=== PATIENT | female | born 1945 | race Caucasian/White ===

== ENCOUNTER 2018-12-27 12:19 | Outpatient (CLI) | payer MEDICARE | END 2018-12-27 23:59 | disposition home or self-care (01) | LOC: RAD 12:19 | PROVIDERS: ATTEND Family Medicine | DX: M47.817 Spondylosis without myelopathy or radiculopathy, lumbosacral region (principal); M48.07 Spinal stenosis, lumbosacral region | CPT/HCPCS: 72148 ==

== ENCOUNTER 2018-12-30 11:01 | Inpatient (IN) | payer MEDICARE, MEDICAID ==
[~2018-12-30] VITALS: Ht 162.6 cm; Wt 106.5 kg
--- NOTE | 2018-12-30 11:01 | NUR ---
ACCESS SERVICES ASSISTANT: PT SENT FROM [facility] FOR EVALUATION OF ABD EDEMA & 25 LB WEIGHT GAIN IN 3 WEEKS, NO SWELLING IN LOWER EXTREMITIES. PT HAS BEEN ON ORAL DIURETIC X 3 WEEKS WITHOUT IMPROVEMENT.
[2018-12-30] MEDS ORDERED: CHOL200040 PO (11:43)
[2018-12-30] MEDS ORDERED: GABA800T5 PO (11:43)
[2018-12-30] MEDS ORDERED: ACET325T26 PO (11:43)
[2018-12-30] MEDS ORDERED: APIX5TAB PO (11:43)
[2018-12-30] MEDS ORDERED: TRAZ50TA66 PO (11:43)
[2018-12-30] MEDS ORDERED: MELA3TAB62 PO (11:43)
[2018-12-30] MEDS ORDERED: CALC-680 PO (11:43)
[2018-12-30] MEDS ORDERED: HYDR-3245 PO (11:43)
[2018-12-30] MEDS ORDERED: CARV3.1212 PO (11:43)
--- NOTE | 2018-12-30 11:51 | NUR ---
CONTACT WITH PT, PTS DAUGHTER AT BEDSIDE. UPDATED ON POC. NO NEEDS EXPRESSED AT THIS TIME.
[2018-12-30 12:05] LABS: BASOPHILS # (AUTO) 0.03 x10^3/uL (0-0.1); BASOPHILS % (AUTO) 1 % (0-1); EOSINOPHILS # (AUTO) 0.11 x10^3/uL (0-0.4); EOSINOPHILS % (AUTO) 2 % (1-7); LYMPHOCYTES # (AUTO) 1.77 x10^3/uL (1-3.4); LYMPHOCYTES % (AUTO) 28 % (22-44); MD NO; MEAN CORPUSCULAR HEMOGLOBIN 32.4 pg (27.0-34.8); MEAN CORPUSCULAR VOLUME 101.3 fL (80-100); MEAN PLATELET VOLUME 7.9 fL (7.4-10.4); MONOCYTES # (AUTO) 0.67 x10^3/uL (0.2-0.8); MONOCYTES % (AUTO) 11 % (2-9); NEUTROPHILS # (AUTO) 3.75 x10^3/uL (1.8-6.8); NEUTROPHILS % (AUTO) 59 % (42-75); PLATELET COUNT 242 x10^3/uL (130-400); RED BLOOD COUNT 4.02 x10^6/uL (3.82-5.3); RED CELL DISTRIBUTION WIDTH 15.8 % (9.6-15.2)
[2018-12-30 12:11] LABS: PROTHROMBIN TIME 10.5 Seconds (9.6-11.5)
[2018-12-30 12:14] LABS: ALANINE AMINOTRANSFERASE 18 U/L (12-78); ALBUMIN 2.8 g/dL (3.4-5.0); ANION GAP 5 mmol/L (5-15); CALCIUM 9.3 mg/dL (8.5-10.1); CHLORIDE 104 mmol/L (98-107); CREATININE 1.01 mg/dL (0.55-1.02)
[2018-12-30 12:18] LABS: ALKALINE PHOSPHATASE 75 U/L (45-117); BILIRUBIN,TOTAL 0.2 mg/dL (0.2-1.0); TROPONIN I < 0.015 ng/mL (0.000-0.045)
--- NOTE | 2018-12-30 12:46 | NUR ---
PT ATTEMPTED TO USE BEDPAIN, UNSUCCESSFUL. PT REPOSITIONED FOR COMFORT. AFIB PER MONITOR, AUTO BP AND PULSE OX INPLACE. UPDATED ON POC. NO OTHER NEEDS EXPRESSED AT THIS TIME.
--- NOTE | 2018-12-30 13:42 | NUR ---
Task RN: Pt refusing cath UA. States unable to urinate at this time. VSS. Pt repositioned in bed.
[2018-12-30] MEDS ORDERED: HYDROcodone/APAP 10/325 MG TABLET PO ONE (14:00)
[2018-12-30] MEDS ORDERED: HYDROcodone/APAP 10/325 MG TABLET ONE (14:01)
--- NOTE | 2018-12-30 14:19 | NUR ---
PUREWICK PLACE BETWEEN PTS LEGS AFTER CLEANING WITH THERAWORX CLEANSING CLOTHS AND AFTER EXPLAINING PROCEDURE TO PT. PT YARITZA WELL. PT AND PTS DAUGHTER AWARE OF PT TO BE ADMITTED INPATIENT STATUS. NO OTHER NEEDS EXPRESSED AT THIS TIME.
[2018-12-30 14:46] LABS: MICROSCOPIC NOT IND
[2018-12-30 14:49] LABS: CULTURE INDICATED? NO
[2018-12-30] MEDS ORDERED: FUROSEMIDE 20 MG/2 ML ONE (15:14)
[2018-12-30] MEDS ORDERED: FUROSEMIDE 40 MG/4 ML IV ONE (15:30)
--- NOTE | 2018-12-30 16:07 | NUR ---
NO SIG CHANGE IN PT CONDITION NOTED. NO OUTPUT AFTER LASIX ADMINISTRATION. PT AND PTS FAMILY AWARE OF WAITING FOR ROOM ASSIGNMENT. NO NEEDS EXPRESSED AT THIS TIME.
--- NOTE | 2018-12-30 16:55 | NUR ---
REPORT CALLED TO [facility]INTON PEREA. POC DISCUSSED. PT WITH 600MLS UOP AFTER LASIX. PT AND FAMILY UPDATED ON ROOM ASSIGNMENT. NO NEEDS EXPRESSED AT THIS TIME.
[2018-12-30 18:52] VITALS: BP 127/80
[2018-12-30] MEDS ORDERED: hydrALAzine 20 MG/ML, 1ML IVPush PRN (20:00)
[2018-12-30] MEDS ORDERED: MELATONIN 3 MG TABLET PO PRN (20:00)
[2018-12-30] MEDS ORDERED: ENOXAPARIN 40 MG/0.4 ML SQ SCH (20:00)
[2018-12-30] MEDS ORDERED: METHOCARBAMOL 500 MG TABLET PO PRN (20:00)
[2018-12-30] MEDS ORDERED: POLYETHYLENE GLYCOL 17 GM PACKET PO PRN (20:00)
[2018-12-30] MEDS ORDERED: ACETAMINOPHEN 325 MG TABLET PO PRN ×2 (20:00)
[2018-12-30] MEDS ORDERED: BISACODYL 10 MG SUPP PR PRN (20:00)
[2018-12-30] MEDS ORDERED: morphine SULFATE 10 MG/ML, 1ML IVPush PRN (20:00)
[2018-12-30] MEDS ORDERED: ONDANSETRON 2MG/ML, 2ML IVPush PRN (20:00)
[2018-12-30] MEDS ORDERED: ONDANSETRON ODT 4 MG PO PRN (20:00)
[2018-12-30] MEDS ORDERED: PROMETHAZINE 25 MG/ML, 1ML IM PRN (20:00)
[2018-12-30] MEDS ORDERED: LABETALOL 5MG/ML, 20ML IVPush PRN (20:00)
[2018-12-30 20:02] LABS: FREE T4 (FREE THYROXINE) 1.01 ng/dL (0.76-1.46); HEMOGLOBIN A1C 5.6 % (4.2-6.3); THYROID STIMULATING HORMONE 1.32 mIU/L (0.358-3.740)
[2018-12-30] MEDS: CARVEDILOL 3.125 MG TABLET PO SCH (20:08)
[2018-12-30] MEDS: TRAZODONE 50MG TABLET PO SCH (20:08)
[2018-12-30] MEDS: HYDROcodone/APAP 10/325 MG TABLET PO SCH (20:08)
[2018-12-30] MEDS: APIXABAN 5 MG TABLET PO SCH (20:08)
[2018-12-30] MEDS: GABAPENTIN 400 MG CAPSULE PO SCH (20:08)
[2018-12-30] MEDS ORDERED: GABAPENTIN 100 MG CAPSULE PO SCH (21:00)
[2018-12-31] MEDS: HYDROcodone/APAP 10/325 MG TABLET PO SCH ×6 (00:51→22:03)
[2018-12-31 01:08] VITALS: BP 120/70
[2018-12-31] MEDS: GABAPENTIN 400 MG CAPSULE PO SCH ×4 (04:57→22:03)
[2018-12-31 05:04] LABS: BASOPHILS # (AUTO) 0.05 x10^3/uL (0-0.1); BASOPHILS % (AUTO) 1 % (0-1); EOSINOPHILS # (AUTO) 0.15 x10^3/uL (0-0.4); EOSINOPHILS % (AUTO) 2 % (1-7); LYMPHOCYTES # (AUTO) 2.08 x10^3/uL (1-3.4); LYMPHOCYTES % (AUTO) 34 % (22-44); MD NO; MEAN CORPUSCULAR HGB CONC 32.3 g/dL (32.4-35.8); MEAN CORPUSCULAR VOLUME 101.9 fL (80-100); MEAN PLATELET VOLUME 7.8 fL (7.4-10.4); MONOCYTES # (AUTO) 0.62 x10^3/uL (0.2-0.8); MONOCYTES % (AUTO) 10 % (2-9); NEUTROPHILS # (AUTO) 3.24 x10^3/uL (1.8-6.8); NEUTROPHILS % (AUTO) 53 % (42-75); PLATELET COUNT 232 x10^3/uL (130-400); RED BLOOD COUNT 3.89 x10^6/uL (3.82-5.3); RED CELL DISTRIBUTION WIDTH 15.6 % (9.6-15.2)
[2018-12-31 05:17] LABS: ALBUMIN 2.7 g/dL (3.4-5.0); ANION GAP 3 mmol/L (5-15); CALCIUM 9.2 mg/dL (8.5-10.1); CHLORIDE 105 mmol/L (98-107)
[2018-12-31 05:22] LABS: ALANINE AMINOTRANSFERASE 17 U/L (12-78); ALKALINE PHOSPHATASE 72 U/L (45-117); BILIRUBIN,TOTAL 0.4 mg/dL (0.2-1.0); CHOL/HDL RATIO 3.2; CHOLESTEROL, TOTAL 155 mg/dL (140-239); CREATININE 0.97 mg/dL (0.55-1.02); HDL CHOL % 32 % (28-40); HDL CHOLESTEROL (DIRECT) 49 mg/dL (40-60); LDL CHOLESTEROL,CALCULATED 83 mg/dL (54-169); LDL/HDL RATIO 1.7 (0.5-3.0); TOTAL PROTEIN 5.7 g/dL (6.4-8.2); TRIGLYCERIDES 117 mg/dL (50-200); VLDL CHOLESTEROL 23 mg/dL (0-25)
[2018-12-31 07:01] VITALS: BP 143/90
[2018-12-31] MEDS ORDERED: FUROSEMIDE 20 MG/2 ML IV ONE (08:00)
[2018-12-31] MEDS ORDERED: FUROSEMIDE 20 MG/2 ML IV SCH (09:00)
[2018-12-31] MEDS: CHOLECALCIFEROL 1,000 UNIT TABLET PO SCH (09:03)
[2018-12-31] MEDS: CARVEDILOL 3.125 MG TABLET PO SCH ×2 (09:04→22:03)
[2018-12-31] MEDS: APIXABAN 5 MG TABLET PO SCH ×2 (09:04→22:03)
[2018-12-31] MEDS: SENNA/DOCUSATE TABLET PO SCH (09:05)
[2018-12-31] MEDS: CALCIUM CITRATE 950 MG TABLET PO SCH (09:05)
[2018-12-31 14:42] VITALS: BP 125/83
[2018-12-31 18:57] VITALS: BP 117/78
[2018-12-31] MEDS: TRAZODONE 50MG TABLET PO SCH (22:03)
[2019-01-01] MEDS: HYDROcodone/APAP 10/325 MG TABLET PO SCH ×6 (01:00→20:51)
[2019-01-01 01:25] VITALS: BP 131/85
[2019-01-01 05:06] LABS: BASOPHILS # (AUTO) 0.07 x10^3/uL (0-0.1); BASOPHILS % (AUTO) 1 % (0-1); EOSINOPHILS # (AUTO) 0.14 x10^3/uL (0-0.4); EOSINOPHILS % (AUTO) 2 % (1-7); LYMPHOCYTES # (AUTO) 3.04 x10^3/uL (1-3.4); LYMPHOCYTES % (AUTO) 39 % (22-44); MD NO; MEAN CORPUSCULAR HEMOGLOBIN 33.2 pg (27.0-34.8); MEAN CORPUSCULAR HGB CONC 32.6 g/dL (32.4-35.8); MEAN CORPUSCULAR VOLUME 101.7 fL (80-100); MEAN PLATELET VOLUME 7.9 fL (7.4-10.4); MONOCYTES # (AUTO) 0.72 x10^3/uL (0.2-0.8); MONOCYTES % (AUTO) 9 % (2-9); NEUTROPHILS # (AUTO) 3.76 x10^3/uL (1.8-6.8); NEUTROPHILS % (AUTO) 49 % (42-75); PLATELET COUNT 216 x10^3/uL (130-400); RED BLOOD COUNT 3.79 x10^6/uL (3.82-5.3); RED CELL DISTRIBUTION WIDTH 15.5 % (9.6-15.2)
[2019-01-01 05:20] LABS: CHLORIDE 105 mmol/L (98-107)
[2019-01-01 05:43] LABS: ALANINE AMINOTRANSFERASE 12 U/L (12-78); ALBUMIN 2.5 g/dL (3.4-5.0); ALKALINE PHOSPHATASE 58 U/L (45-117); ANION GAP 5 mmol/L (5-15); BILIRUBIN,TOTAL 0.2 mg/dL (0.2-1.0); CALCIUM 9.4 mg/dL (8.5-10.1); CREATININE 0.96 mg/dL (0.55-1.02); TOTAL PROTEIN 5.4 g/dL (6.4-8.2)
[2019-01-01] MEDS: GABAPENTIN 400 MG CAPSULE PO SCH ×4 (05:47→20:51)
[2019-01-01 07:50] VITALS: BP 120/78
[2019-01-01] MEDS: APIXABAN 5 MG TABLET PO SCH ×2 (09:10→20:51)
[2019-01-01] MEDS: CHOLECALCIFEROL 1,000 UNIT TABLET PO SCH (09:10)
[2019-01-01] MEDS: CALCIUM CITRATE 950 MG TABLET PO SCH (09:10)
[2019-01-01] MEDS: CARVEDILOL 3.125 MG TABLET PO SCH ×2 (09:10→20:51)
[2019-01-01] MEDS: SENNA/DOCUSATE TABLET PO SCH (09:10)
[2019-01-01 13:15] VITALS: BP 130/77
[2019-01-01] MEDS: FUROSEMIDE 20 MG/2 ML IV SCH (17:30)
[2019-01-01 19:16] VITALS: BP 126/74
[2019-01-01] MEDS: TRAZODONE 50MG TABLET PO SCH (20:51)
[2019-01-02 01:07] VITALS: BP 120/73
[2019-01-02] MEDS: HYDROcodone/APAP 10/325 MG TABLET PO SCH ×6 (01:31→20:05)
[2019-01-02 05:23] LABS: BASOPHILS # (AUTO) 0.06 x10^3/uL (0-0.1); BASOPHILS % (AUTO) 1 % (0-1); EOSINOPHILS # (AUTO) 0.17 x10^3/uL (0-0.4); EOSINOPHILS % (AUTO) 2 % (1-7); LYMPHOCYTES # (AUTO) 3.01 x10^3/uL (1-3.4); LYMPHOCYTES % (AUTO) 42 % (22-44); MD NO; MEAN CORPUSCULAR HEMOGLOBIN 33.5 pg (27.0-34.8); MEAN CORPUSCULAR HGB CONC 33.2 g/dL (32.4-35.8); MEAN CORPUSCULAR VOLUME 100.9 fL (80-100); MEAN PLATELET VOLUME 7.7 fL (7.4-10.4); MONOCYTES % (AUTO) 10 % (2-9); NEUTROPHILS # (AUTO) 3.15 x10^3/uL (1.8-6.8); NEUTROPHILS % (AUTO) 44 % (42-75); PLATELET COUNT 217 x10^3/uL (130-400); RED BLOOD COUNT 3.89 x10^6/uL (3.82-5.3); RED CELL DISTRIBUTION WIDTH 15.6 % (9.6-15.2)
[2019-01-02] MEDS: GABAPENTIN 400 MG CAPSULE PO SCH ×4 (05:25→20:05)
[2019-01-02 05:31] LABS: ALANINE AMINOTRANSFERASE 22 U/L (12-78); ALBUMIN 2.6 g/dL (3.4-5.0); ANION GAP 4 mmol/L (5-15); CALCIUM 9.2 mg/dL (8.5-10.1); CHLORIDE 106 mmol/L (98-107); CREATININE 0.89 mg/dL (0.55-1.02)
[2019-01-02 05:34] LABS: ALKALINE PHOSPHATASE 59 U/L (45-117); BILIRUBIN,TOTAL 0.3 mg/dL (0.2-1.0); TOTAL PROTEIN 5.4 g/dL (6.4-8.2)
[2019-01-02 07:52] VITALS: BP 104/67
[2019-01-02] MEDS: CHOLECALCIFEROL 1,000 UNIT TABLET PO SCH (09:10)
[2019-01-02] MEDS: SENNA/DOCUSATE TABLET PO SCH (09:10)
[2019-01-02] MEDS: FUROSEMIDE 20 MG/2 ML IV SCH ×2 (09:10→17:14)
[2019-01-02] MEDS: APIXABAN 5 MG TABLET PO SCH ×2 (09:10→20:05)
[2019-01-02] MEDS: CALCIUM CITRATE 950 MG TABLET PO SCH (09:11)
[2019-01-02] MEDS: CARVEDILOL 3.125 MG TABLET PO SCH ×2 (09:11→20:05)
[2019-01-02 12:57] VITALS: BP 100/53
[2019-01-02] MEDS: TRAZODONE 50MG TABLET PO SCH (20:04)
[2019-01-02 20:05] VITALS: BP 108/66
[2019-01-03] MEDS: HYDROcodone/APAP 10/325 MG TABLET PO SCH ×4 (01:19→13:04)
[2019-01-03 01:21] VITALS: BP 135/81
[2019-01-03] MEDS: GABAPENTIN 400 MG CAPSULE PO SCH ×2 (05:10→12:06)
[2019-01-03 05:30] LABS: BASOPHILS # (AUTO) 0.03 x10^3/uL (0-0.1); BASOPHILS % (AUTO) 1 % (0-1); EOSINOPHILS # (AUTO) 0.18 x10^3/uL (0-0.4); EOSINOPHILS % (AUTO) 3 % (1-7); LYMPHOCYTES # (AUTO) 2.92 x10^3/uL (1-3.4); LYMPHOCYTES % (AUTO) 44 % (22-44); MD NO; MEAN CORPUSCULAR HEMOGLOBIN 33.7 pg (27.0-34.8); MEAN CORPUSCULAR HGB CONC 33.3 g/dL (32.4-35.8); MEAN CORPUSCULAR VOLUME 101.1 fL (80-100); MONOCYTES # (AUTO) 0.64 x10^3/uL (0.2-0.8); MONOCYTES % (AUTO) 10 % (2-9); NEUTROPHILS # (AUTO) 2.89 x10^3/uL (1.8-6.8); NEUTROPHILS % (AUTO) 43 % (42-75); PLATELET COUNT 212 x10^3/uL (130-400); RED BLOOD COUNT 3.67 x10^6/uL (3.82-5.3); RED CELL DISTRIBUTION WIDTH 15.3 % (9.6-15.2)
[2019-01-03 05:35] LABS: CHLORIDE 103 mmol/L (98-107)
[2019-01-03 05:45] LABS: ALANINE AMINOTRANSFERASE 21 U/L (12-78); ALBUMIN 2.5 g/dL (3.4-5.0); ALKALINE PHOSPHATASE 58 U/L (45-117); ANION GAP 4 mmol/L (5-15); BILIRUBIN,TOTAL 0.4 mg/dL (0.2-1.0); CALCIUM 9.3 mg/dL (8.5-10.1); CREATININE 0.88 mg/dL (0.55-1.02); TOTAL PROTEIN 5.3 g/dL (6.4-8.2)
[2019-01-03 06:44] VITALS: BP 109/72
[2019-01-03] MEDS ORDERED: FURO40TA6 PO (08:01)
[2019-01-03] MEDS ORDERED: FURO-93 PO (08:01)
[2019-01-03] MEDS: CALCIUM CITRATE 950 MG TABLET PO SCH (08:54)
[2019-01-03] MEDS: SENNA/DOCUSATE TABLET PO SCH (08:54)
[2019-01-03] MEDS: FUROSEMIDE 20 MG/2 ML IV SCH (08:54)
[2019-01-03] MEDS: CARVEDILOL 3.125 MG TABLET PO SCH (08:54)
[2019-01-03] MEDS: CHOLECALCIFEROL 1,000 UNIT TABLET PO SCH (08:54)
[2019-01-03] MEDS: APIXABAN 5 MG TABLET PO SCH (08:54)
[2019-01-03 13:23] VITALS: BP 115/64
== END 2019-01-03 15:00 | DRG 205 ==
LOC: ED 14:17 → EDIP 15:05 → 5SO 17:20
PROVIDERS: ADMIT Emergency Medicine; ATTEND Emergency Medicine
DX: E66.2 Morbid (severe) obesity with alveolar hypoventilation (principal); E43 Unspecified severe protein-calorie malnutrition; D68.69 Other thrombophilia; N39.0 Urinary tract infection, site not specified; Z68.41 Body mass index [BMI] 40.0-44.9, adult; I50.810 Right heart failure, unspecified; D75.89 Other specified diseases of blood and blood-forming organs; I48.2 Chronic atrial fibrillation; K76.89 Other specified diseases of liver; K80.20 Calculus of gallbladder without cholecystitis without obstruction; M47.816 Spondylosis without myelopathy or radiculopathy, lumbar region; M48.061 Spinal stenosis, lumbar region without neurogenic claudication; M51.27 Other intervertebral disc displacement, lumbosacral region; Z74.01 Bed confinement status; Z79.899 Other long term (current) drug therapy; Z90.710 Acquired absence of both cervix and uterus; Z90.49 Acquired absence of other specified parts of digestive tract; Z79.01 Long term (current) use of anticoagulants
CPT/HCPCS: 36415; 71045; 76700; 80053; 80061; 81003; 82306; 82607; 83036; 83735; 83880; 84439; 84443; 84484; 85025; 85610; 85730; 93005; 93306; 96374; 99285; G0378; J1940